=== PATIENT | female | born 1970 | race Caucasian/White ===

== ENCOUNTER 2018-04-07 21:48 | Inpatient (IN) | payer MEDICAID, SELFPAY ==
[2018-04-07] VITALS (29 sets, daily range): BP systolic 99–179; BP diastolic 47–98; PULSE 100–115; RESP 15–36; TEMP 37.1; O2SAT 81–100
[2018-04-07 22:30] LABS: Abs Immature Grans 0.03 k/cumm (0.0-0.09); Absolute Basophil Count 0.07 k/cumm (0.0-0.2); Absolute Eosinophil Count 0.34 k/cumm (0.0-0.7); Absolute Lymphocyte Count 3.36 k/cumm (1.2-3.4); Absolute Monocyte Count 0.91 k/cumm (0.11-0.7); Absolute Neutrophil Count 6.27 k/cumm (1.2-6.7); Basophils % 0.6; Eosinophils % 3.1; HCT 37.9 % (36.0-46.0); HGB 11.8 g/dL (12.0-15.5); Immature Grans % 0.3; Lymphocytes % 30.6; Mean Corp. HGB Concentration 31.1 g/dL (32.0-36.0); Mean Corpuscular Hemoglobin 23.9 pg (27.0-33.0); Mean Corpuscular Volume 76.9 fL (80-95); Mean Platelet Volume 9.9 fL (8.0-11.0); Monocytes % 8.3; Neutrophils % 57.1; Platelet Count 374 x1000/uL (130-400); RBC 4.93 m/cumm (4.00-5.20); RBC Distribution Width 15.7 % (11.7-14.6); White Blood Cell Count 10.98 k/cumm (4.4-10.8)
--- NOTE | 2018-04-07 22:31 | W.ED.GENAD ---
Discharge Plan Discharge Details Chief Complaint: Chest Pain Primary Care Provider: Niru Garces ED Provider: Reed Aparicio Home Meds and New Rx's Prescriptions: No Action No Known Home Meds RF: 0 Medical Decision Making 10:30 -- 47-year-old female here with left anterior chest and shoulder pain radiating to her left neck and left arm. Tachycardic. Normotensive. Saturating well no respiratory distress. ECG reviewed and interpreted by me: Sinus tachycardia 108 bpm, normal axis, ST depressions are noted lead I, V3 to V6, no STEMI, nondiagnostic. I compared EKG to prior EKG from 01/20/2010 where she did have some subtle ST depression which seems less pronounced laterally. Despite lacking significant risk factors for coronary artery disease, I am concerned given the patient's presentation and ECG findings that she may have acute coronary syndrome. Plan at this time is to check troponin. Patient is tachycardic, I suspect secondary to anxiety as she is quite anxious. She has no other signs of acute pulmonary embolism including no associated shortness of breath or calf tenderness and no risk factors for DVT/PE. Will check ddimer and give ativan. -- Patient reassessed after nitro SL x2 and pain significantly improved. 12:00 -- Initial trop neg. Ddimer < 500 but patient remains tachycardic despite anxiolytic. Also with low normal saturations. Plan to CT chest to assess for PE/dissection. 1:50 --CT of the chest interpreted by radiology: Limited examination for the exclusion of pulmonary emboli as a result of quantum mottle, no central embolism is identified. There is low density within a left subsegmental branch which could be artifactual or represent a small pulmonary embolism. Aorta and main pulmonary artery are similar in caliber which can be seen with pulmonary arterial hypertension. Large complex lesion in the left lobe of the thyroid. Ultrasound recommended for further evaluation. Nodular density in the left breast this may represent a cystic structure. Diagnostic mammogram and ultrasound would be beneficial for better evaluation. Hepatic steatosis. No pneumothorax. No pleural effusion. No cardiomegaly. No pericardial effusion. Spoke with radiologist about the study and specifically regarding the complex lesion of the left thyroid. She does note there could be bleeding within this mass. Ultrasound is not available tonight. I will proceed to dedicated CT imaging of the neck to better assess this lesion prior to initiating lovenox. Pt does not have tenderness in this area. I spoke with patient about results - she understands importance of follow-up on incidental findings. HPI General Mode of arrival: ambulatory. Date/Time Provider Initiated Documentation: 04/07/18 22:12. Limitations to Documentation: no limitations. Information obtained by: patient. HPI Narrative: 47-year-old female presents with chief complaint of left shoulder pain. Patient notes that she was on the phone, speaking with her son around 7:30 PM tonight and developed pain in her left shoulder that initially felt like a sprained muscle. Pain then started to radiate into her left neck, left upper extremity and down to her elbow. Pain has persisted. Pain is constant and moderate in intensity. Pain is rated 5/10. No modifiers. Deep inspiration does not worsen the pain. She has no associated shortness of breath. She does note chronic leg swelling that is unchanged with no focal swelling or pain in her calves. She has had some associated nausea but did not vomit. Related Data Home Medications Medication Instructions Recorded Confirmed Unknown [No Known Home Meds] 04/07/18 04/07/18 Allergies Allergy/AdvReac Type Severity Reaction Status Date / Time No Known Allergies Allergy Unverified 04/07/18 21:55 General Stated Complaint: Chest Pain CARSON: 2 Review of Systems Review of Systems All systems reviewed & are unremarkable except as noted in HPI and below Cardiovascular Reports chest pain (Upper anterior chest) and Denies dyspnea Respiratory Denies cough and Denies dyspnea Psychiatric Reports anxiety [facility] Social History Smoking/Tobacco Use Status: Never Exam Const General: cooperative and anxious [facility] Head: normocephalic and atraumatic Mouth: moist mucous membranes Eyes Conjunctivae: normal conjunctivae Sclera: normal sclerae EOM: EOM intact bilaterally Neck Neck: trachea midline, supple and nontender Thyroid: lateral enlargement on the left and nontender Resp Auscultation: clear to auscultation bilaterally, no rales, no rhonchi and no wheezes Cardio Jugular venous pressure: no JVD Rate: regular rate and tachycardic Rhythm: regular rhythm Heart Sounds: murmur (2/6 left chest) GI Palpation: soft, not firm, no guarding, no masses, not rigid and nontender Skin General skin exam: no rashes or lesions noted Neuro General: alert, awake, oriented x3 and tone normal Cognition: normal cognition Speech: speech normal Extrem General: no calf tenderness bilaterally and edema Laterality: bilateral (trace nonpitting) Psych Appearance: grossly normal Mental Status: mental status grossly normal Speech and Movement: speech and movement normal Mood: anxious mood Affect: anxious affect Course Vital Signs Temperature 37.1 C 04/07/18 21:55 Pulse 112 H 04/07/18 21:55 Respiratory Rate 18 04/07/18 21:55 Blood Pressure 179/98 H 04/07/18 21:55 Pulse Oximetry 100 04/07/18 21:55 Temperature 37.1 C 04/07/18 21:55 Temperature Source Temporal Artery Scan 04/07/18 21:55 Pulse 112 H 04/07/18 21:55 Respiratory Rate 19 04/07/18 21:58 Respiratory Effort 04/07/18 21:58 Respiratory Depth Normal 04/07/18 21:58 Respiratory Pattern Normal 04/07/18 21:58 Blood Pressure 179/98 H 04/07/18 21:55 Blood Pressure Position Sitting 04/07/18 21:55 Pulse Oximetry 100 04/07/18 21:55 Oxygen Delivery Method Room Air 04/07/18 21:55 Oxygen Flow Rate 0 04/07/18 21:55 Pain Level 5 04/07/18 21:55
--- NOTE | 2018-04-07 22:35 | ED.GENADUL_ITS ---
Discharge Plan Discharge Details Chief Complaint: Chest Pain Primary Care Provider: Niru Garces ED Provider: Reed Aparicio Home Meds and New Rx's Prescriptions: No Action No Known Home Meds RF: 0 Medical Decision Making 10:30 -- 47-year-old female here with left anterior chest and shoulder pain radiating to her left neck and left arm. Tachycardic. Normotensive. Saturating well no respiratory distress. ECG reviewed and interpreted by me: Sinus tachycardia 108 bpm, normal axis, ST depressions are noted lead I, V3 to V6, no STEMI, nondiagnostic. I compared EKG to prior EKG from 01/20/2010 where she did have some subtle ST depression which seems less pronounced laterally. Despite lacking significant risk factors for coronary artery disease, I am concerned given the patient's presentation and ECG findings that she may have acute coronary syndrome. Plan at this time is to check troponin. Patient is tachycardic, I suspect secondary to anxiety as she is quite anxious. She has no other signs of acute pulmonary embolism including no associated shortness of breath or calf tenderness and no risk factors for DVT/PE. Will check ddimer and give ativan. -- Patient reassessed after nitro SL x2 and pain significantly improved. 12:00 -- Initial trop neg. Ddimer < 500 but patient remains tachycardic despite anxiolytic. Also with low normal saturations. Plan to CT chest to assess for PE/dissection. 1:50 --CT of the chest interpreted by radiology: Limited examination for the exclusion of pulmonary emboli as a result of quantum mottle, no central embolism is identified. There is low density within a left subsegmental branch which could be artifactual or represent a small pulmonary embolism. Aorta and main pulmonary artery are similar in caliber which can be seen with pulmonary arterial hypertension. Large complex lesion in the left lobe of the thyroid. Ultrasound recommended for further evaluation. Nodular density in the left breast this may represent a cystic structure. Diagnostic mammogram and ultrasound would be beneficial for better evaluation. Hepatic steatosis. No pneumothorax. No pleural effusion. No cardiomegaly. No pericardial effusion. Spoke with radiologist about the study and specifically regarding the complex lesion of the left thyroid. She does note there could be bleeding within this mass. Ultrasound is not available tonight. I will proceed to dedicated CT imaging of the neck to better assess this lesion prior to initiating lovenox. Pt does not have tenderness in this area. I spoke with patient about results - she understands importance of follow-up on incidental findings. HPI General Mode of arrival: ambulatory . Date/Time Provider Initiated Documentation: 04/07/18 22:12 . Limitations to Documentation: no limitations . Information obtained by: patient . HPI Narrative: 47-year-old female presents with chief complaint of left shoulder pain. Patient notes that she was on the phone, speaking with her son around 7:30 PM tonight and developed pain in her left shoulder that initially felt like a sprained muscle. Pain then started to radiate into her left neck, left upper extremity and down to her elbow. Pain has persisted. Pain is constant and moderate in intensity. Pain is rated 5/10. No modifiers. Deep inspiration does not worsen the pain. She has no associated shortness of breath. She does note chronic leg swelling that is unchanged with no focal swelling or pain in her calves. She has had some associated nausea but did not vomit. Related Data Home Medications Medication Instructions Recorded Confirmed Unknown [No Known Home Meds] 04/07/18 04/07/18 Allergies Allergy/AdvReac Type Severity Reaction Status Date / Time No Known Allergies Allergy Unverified 04/07/18 21:55 General Stated Complaint: Chest Pain CARSON: 2 Review of Systems Review of Systems All systems reviewed & are unremarkable except as noted in HPI and below Cardiovascular Reports chest pain (Upper anterior chest) and Denies dyspnea Respiratory Denies cough and Denies dyspnea Psychiatric Reports anxiety [facility] Social History Smoking/Tobacco Use Status: Never Exam Const General: cooperative and anxious [facility] Head: normocephalic and atraumatic Mouth: moist mucous membranes Eyes Conjunctivae: normal conjunctivae Sclera: normal sclerae EOM: EOM intact bilaterally Neck Neck: trachea midline, supple and nontender Thyroid: lateral enlargement on the left and nontender Resp Auscultation: clear to auscultation bilaterally, no rales, no rhonchi and no wheezes Cardio Jugular venous pressure: no JVD Rate: regular rate and tachycardic Rhythm: regular rhythm Heart Sounds: murmur (2/6 left chest) GI Palpation: soft, not firm, no guarding, no masses, not rigid and nontender Skin General skin exam: no rashes or lesions noted Neuro General: alert, awake, oriented x3 and tone normal Cognition: normal cognition Speech: speech normal Extrem General: no calf tenderness bilaterally and edema Laterality: bilateral (trace nonpitting) Psych Appearance: grossly normal Mental Status: mental status grossly normal Speech and Movement: speech and movement normal Mood: anxious mood Affect: anxious affect Course Vital Signs Temperature 37.1 C 04/07/18 21:55 Pulse 112 H 04/07/18 21:55 Respiratory Rate 18 04/07/18 21:55 Blood Pressure 179/98 H 04/07/18 21:55 Pulse Oximetry 100 04/07/18 21:55 Temperature 37.1 C 04/07/18 21:55 Temperature Source Temporal Artery Scan 04/07/18 21:55 Pulse 112 H 04/07/18 21:55 Respiratory Rate 19 04/07/18 21:58 Respiratory Effort 04/07/18 21:58 Respiratory Depth Normal 04/07/18 21:58 Respiratory Pattern Normal 04/07/18 21:58 Blood Pressure 179/98 H 04/07/18 21:55 Blood Pressure Position Sitting 04/07/18 21:55 Pulse Oximetry 100 04/07/18 21:55 Oxygen Delivery Method Room Air 04/07/18 21:55 Oxygen Flow Rate 0 04/07/18 21:55 Pain Level 5 04/07/18 21:55
--- NOTE | 2018-04-07 22:35 | DI.RAD_ITS ---
SYMPTOMS/DIAGNOSIS: CHEST PAIN CHEST X-RAY, AP PORTABLE: No priors. The heart size and pulmonary vasculature are within normal limits. No focal consolidating infiltrates are seen. No effusions or pneumothoraces are identified. IMPRESSION: No acute pulmonary process.
[2018-04-07] MEDS: LORazepam 2 MG/ML VIAL 0.5 MG IVP (22:37)
[2018-04-07 22:51] LABS: ALT 41 U/L (12-78); AST 29 U/L (15-37); Albumin 3.8 g/dL (3.4-5.0); Alkaline Phosphatase 103 U/L (46-116); Anion Gap 8.8 mmol/L (3-11); BUN 14 mg/dL (7-18); Bilirubin, Total 0.3 mg/dL (0.2-1.0); CO2 29.2 mmol/L (21.0-32.0); CREATININE 0.61 mg/dL (0.55-1.02); Calcium 9.4 mg/dL (8.5-10.1); Chloride 103 mmol/L (98-107); Glucose 117 mg/dL (70-100); Magnesium 2.1 mg/dL (1.8-2.4); Sodium 141 mmol/L (136-145); Total Protein 7.5 g/dL (6.4-8.2)
[2018-04-07 22:53] LABS: Troponin I < 0.02 ng/mL (0.00-0.06)
[2018-04-07 23:04] LABS: D-Dimer 451 ng/mlFEU (<500)
--- NOTE | 2018-04-07 23:15 | DI.VRAD_ITS ---
EXAM: XR Chest, 1 View EXAM DATE/TIME: 04/07/2018 10:35 PM CLINICAL HISTORY: 47 years old, female; Pain; Chest pain TECHNIQUE: XR of the chest, 1 view. COMPARISON: No relevant prior studies available. FINDINGS: Lungs: Minimal strandiness in the left lung base suggests mild atelectasis/scarring. Pleural space: Unremarkable. No pleural effusion. No pneumothorax. Heart/Mediastinum: Unremarkable. No cardiomegaly. Bones/joints: Chronic osseous changes. IMPRESSION: No acute findings. Dictated and Authenticated by: Jesse Beaver MD. Ordering:EARL OQUENDO MD
[2018-04-08] VITALS (69 sets, daily range): BP systolic 101–156; BP diastolic 45–127; PULSE 71–129; RESP 13–32; TEMP 36.2–36.9; O2SAT 86–100
--- NOTE | 2018-04-08 00:30 | DI.CT_ITS ---
SYMPTOMS/DIAGNOSIS: LEFT CHEST PAIN, TACHYCARDIA; LEFT NECK MASS, NECK PAIN CT SCAN OF THE CHEST: CT angiography was performed with multi slice acquisition and multi planar and 3D reconstruction. CT scan of the chest was performed according to the pulmonary embolus protocol. Comparison mammogram is 03/02/2012. The peripheral pulmonary arteries are not well opacified. No central pulmonary artery embolus is seen. The thoracic aorta is of normal caliber. No aneurysm or dissection is present. The heart size is within normal limits. No significant pericardial effusion is seen. No significant mediastinal or hilar adenopathy is present. No pleural effusion or pneumothorax is identified. No focal infiltrates are seen. The tracheobronchial tree is unremarkable. Upper abdominal images show no acute abnormality. There does appear to be decreased attenuation of the liver, suggesting hepatic steatosis. There is a well-circumscribed hypodense lesion in the retroareolar region of the left breast. There is a lesion seen on mammogram from 2012, which likely corresponds to this. The lesion currently measures 1.9 cm. Mammogram followup is recommended. Degenerative changes are seen in the spine. There is a complex cystic and solid lesion in the left thyroid gland. There is a peripherally calcified hypodense lesion in the inferior and posterior aspect of the left lobe of the thyroid gland. The left thyroid is enlarged and extends into the retrosternal region. The lesion is incompletely imaged, but measures 7.1 x 5.7 cm maximally. It does cause rightward deviation of the trachea. IMPRESSION: 1. Suboptimal opacification of the pulmonary arteries, but no central pulmonary artery embolus is seen. 2. No evidence of thoracic aortic dissection or aneurysm. 3. Complex left thyroid lesion. Ultrasound is recommended for further evaluation. 4. Nodular density in the left breast. Mammography should be considered for further evaluation. CT SCAN OF THE NECK: CT scan of the neck was performed following the uneventful administration of intravenous contrast material. The thyroid gland is heterogeneous with bilateral masses. The left lobe is enlarged with a heterogeneous mass measuring 6.6 x 5.4 x 7.7 cm. It causes rightward deviation of the trachea. There is a peripherally calcified nodule in the lower pole of the left lobe of the thyroid gland. There is a hypodense 1.3 cm nodule in the right lobe of the thyroid gland. There is a calcification in the upper pole of the right lobe of the thyroid gland. The nasopharynx, oropharynx, hypopharynx, larynx and trachea are otherwise unremarkable. The retropharyngeal space has a normal appearance. The parotid and submandibular glands are unremarkable. No significant cervical adenopathy is present. The vascular structures are grossly unremarkable. The bones are intact. The lung apices are clear. IMPRESSION: Enlarged heterogeneous thyroid with multiple thyroid nodules, the largest is a 7.7 cm heterogeneous left thyroid mass. Further evaluation is recommended. This may include ultrasound and biopsy if clinically appropriate.
[2018-04-08] MEDS: Lactated Ringers 500 ML IV (00:40)
[2018-04-08] MEDS: Omnipaque 350 MG/ML 100 ML BTL IJ ×2 (01:04→02:55)
[2018-04-08 01:17] LABS: TSH (W/Ref FT4) 2.03 uIU/mL (0.358-3.74)
--- NOTE | 2018-04-08 01:39 | DI.VRAD_ITS ---
EXAM: CT Angiography Chest With Intravenous Contrast EXAM DATE/TIME: 04/08/2018 12:05 AM CLINICAL HISTORY: 47 years old, female; Pain and signs and symptoms; Other: Tachycardia; Chest pain; Type not specified; Patient HX: Chest pain and discomfort worsening throughout the day and into arm TECHNIQUE: Axial computed tomographic angiography images of the chest with intravenous contrast using CT angiography protocol. All CT scans at this facility use at least one of these dose optimization techniques: automated exposure control; mA and/or kV adjustment per patient size (includes targeted exams where dose is matched to clinical indication); or iterative reconstruction. Coronal and sagittal reformatted images were created and reviewed. MIP reconstructed images were created and reviewed. CONTRAST: 100 ml of Omnipaque 350 administered intravenously. COMPARISON: SC XR PORTABLE CHEST AP 04/07/2018 10:55 PM FINDINGS: Limitations: The contrast in the main pulmonary artery only measures 213 Hounsfield units. Ideally, to exclude pulmonary embolism, contrast in the main pulmonary arteries should measure at least 250 Hounsfield units. In addition, there is a considerable amount of quantum mottle. Motion is also seen. Pulmonary arteries: No central pulmonary embolism is identified. There is low density within it a left subsegmental branch on series 8 image 232 which could be artifactual or represent a small pulmonary embolism. Aorta: Evaluation of the proximal ascending thoracic aorta is limited secondary to motion. No aneurysm identified. The aorta and main pulmonary artery are similar in caliber which can be seen with pulmonary arterial hypertension. Lungs: There are scattered areas of atelectasis or scarring. Pleural space: Normal. No pneumothorax. No pleural effusion. Heart: Normal. No cardiomegaly. No pericardial effusion. Mediastinum: Gas in the esophagus which can be seen with reflux. Thyroid: The thyroid appears heterogeneous with a complex lesion identified in the left lobe measuring approximately 6 cm. Ultrasound recommended for further evaluation. Bones/joints: Skeletal degenerative changes. Scoliosis. Soft tissues: Series 6 image 33 demonstrates a 1.6 cm nodular density in the left breast measuring less than 10 Hounsfield units. This may represent a cystic structure. Diagnostic mammogram and ultrasound would be beneficial for better evaluation. Lymph nodes: Unremarkable. No enlarged lymph nodes. Liver: Limited evaluation of the abdomen demonstrates hepatic steatosis. Upper abdomen: Mild elevation of the right hemidiaphragm. IMPRESSION: 1. Limited examination for the exclusion of pulmonary emboli for reasons as above. No central pulmonary embolism is identified. There is low density within it a left subsegmental branch on series 8 image 232 which could be artifactual or represent a small pulmonary embolism. 2. Aorta and main pulmonary artery are similar in caliber which can be seen with pulmonary arterial hypertension. 3. Large complex lesion in the left lobe of the thyroid. Ultrasound recommended for further evaluation. 4. Nodular density in the left breast. This may represent a cystic structure. Diagnostic mammogram and ultrasound would be beneficial for better evaluation. 5. Hepatic steatosis. Other findings as above. Dictated and Authenticated by: Heidi Larsen MD. Ordering:EARL OQUENDO MD
[2018-04-08 01:47] LABS: FREE T4 1.02 ng/dL (0.76-1.46)
[2018-04-08 02:19] LABS: Troponin I < 0.02 ng/mL (0.00-0.06)
--- NOTE | 2018-04-08 03:26 | DI.VRAD_ITS ---
EXAM: CT Neck With Intravenous Contrast EXAM DATE/TIME: 04/08/2018 1:50 AM CLINICAL HISTORY: 47 years old, female; Abnormal findings; Abnormal radiologic study of neck; Patient HX: Lesion seen on CT pe study, TECHNIQUE: Axial computed tomography images of the neck with intravenous contrast. All CT scans at this facility use at least one of these dose optimization techniques: automated exposure control; mA and/or kV adjustment per patient size (includes targeted exams where dose is matched to clinical indication); or iterative reconstruction. Coronal and sagittal reformatted images were created and reviewed. CONTRAST: 100 ml of Omnipaque 350 administered intravenously. COMPARISON: No relevant prior studies available. FINDINGS: Nasopharynx: Normal. Oropharynx: Normal. No significant tonsillar enlargement. No peritonsillar abscess. Hypopharynx: Normal. Larynx: Normal. Normal epiglottis. Trachea: Normal. Retropharyngeal space: Normal. Submandibular/Parotid glands: Normal. Glands are normal in size. Thyroid: Enlarged left thyroid lobe, 6.6 x 5.4 x 7.7 cm, responsible for mild tracheal deviation to the right. Left thyroid lobe is heterogeneous, essentially composed of hypodense heterogeneous nodule, consider biopsy. Peripherally calcified nodule within lower pole measures 1.9 x 1.7 cm. Bones/joints: Normal. No acute fracture. Soft tissues: Normal. No significant soft tissue swelling. Vasculature: No acute findings. Lymph nodes: Normal. No lymphadenopathy. Lung apices: See Thyroid Finding. IMPRESSION: Enlarged left thyroid lobe, nearly entirely composed of a heterogeneous nodule, consider evaluation with elective ultrasound and if clinically appropriate, biopsy. Dictated and Authenticated by: Yusuf Miranda MD. Ordering:EARL OQUENDO MD
[2018-04-08] MEDS: Pantoprazole 40 MG TABCR PO (08:34)
--- NOTE | 2018-04-08 17:17 | HPE_ITS ---
Assessment and Plan (1) Pulmonary embolism: Current visit: Yes Status: Acute Diagnosis of PE in patient with a normal DDimer, and CT findings that are equivocal at best with technique limitations but could represent either artifact or a 'small' pulmonary embolism. Patient is completely hemodynamicaly stable. Of note however, Mrs. Montgomery does report a prior history of DVT in the early in the setting of decreased mobility (work related), and although she has abnormal imaging findings in the thyroid and left breast that are likely non-malignant, cannot entirely rule out Cancer at this time. Continue SC Lovenox. Novel Oral Anticoagulants are contraindicated due to patient's weight and BMI - will initiate concurrent Coumadin. Will likely require SC Lovenox at time of discharge until INR is therapeutic. Given that patient's symptoms were of Chest discomfort will completely rule out with serial cardiac biomarkers as well, and maintain on telemetry. Consider stress testing in the near future as well. (2) Thyroid nodule: Current visit: Yes Status: Acute Subsequent imaging by CT Neck shows a heterogenous nodule encompassing nearly the entire left lobe of the thyroid. TSH normal. Will recommend outpatient follow-up with an elective u/s and biopsy in the near future. (3) Breast cyst: Current visit: Yes Status: Acute Again recommend outpatient u/s and biopsy as above, along with a diagnostic mammogram. (4) Obesity: Current visit: Yes Status: Chronic (5) DVT prophylaxis: Current visit: Yes Status: Acute On therapeutic lovenox. History of Present Illness Chief Complaint: Chest Pain Narrative: 47-year-old pleasant woman without known significant prior medical history other than potential DVT diagnosed in the early , presents to [facility] Emergency Department with complaint of Chest Pain. Mrs. Montgomery reports onset of left anterior chest and shoulder pain last evening , with radiation to her left neck and upper extremity. She was noted to be tachycardic, but Normotensive and without an oxygen requirement. Her ECG was reported as nondiagnostic but without acute ischemic changes, unfortunately unavailable for review at time of admission. Despite improvement in pain in the ER with SL NTG, the patient had a negative Troponin X2. Despite a negative DDimer the patient underwent CT Imaging of the chest, which was limited by technique and showed a 'potential' left subsegmental artifact vs. small PE. Note was also made of a cystic nodule in the left breast, as well as an enlarged left lobe of the thyroid, composed nearly entirely of a heterogeneous nodule by CT Neck. TSH was checked and normal. The patient was referred for admission to the hospitalist service. Review of Systems Review of Systems All systems reviewed & are unremarkable except as noted in HPI and below and Unobtainable due to (Specifically denies dyspnea, any change in LE swelling, Calf Pain. No recent surgery or gross immobility. No recent travel.) [facility] Social History Smoking/Tobacco Use Status: Never Meds Home Medications Medication Instructions Recorded Confirmed Type Unknown [No Known Home Meds] 04/07/18 04/07/18 History Allergies Allergy/AdvReac Type Severity Reaction Status Date / Time No Known Allergies Allergy Unverified 04/07/18 21:55 Exam Narrative Exam Narrative: General: Patient appears comfortable, AAOX3, NAD Neck: Supple CV: Regular, nontachycardic at time of exam, S1S2, No rubs, murmurs, or gallops. Pulmonary: Clear to auscultation bilaterally, no crackles, wheezing, or rhonchi Abdomen: + Bowel Sounds, soft, nontender, nondistended, obese in contour Vascular: No lower extremity edema Neurologic: CN II-XII grossly intact. No focal deficits. Psych: Normal mood and affect. Results Imaging CT scan - chest: report reviewed Additional studies: Exam(s) EXAM: XR Chest, 1 View EXAM DATE/TIME: 04/07/2018 10:35 PM CLINICAL HISTORY: 47 years old, female; Pain; Chest pain FINDINGS: Lungs: Minimal strandiness in the left lung base suggests mild atelectasis/scarring. Pleural space: Unremarkable. No pleural effusion. No pneumothorax. Heart/Mediastinum: Unremarkable. No cardiomegaly. Bones/joints: Chronic osseous changes. IMPRESSION: No acute findings. ----- Exam(s) EXAM: CT Angiography Chest With Intravenous Contrast EXAM DATE/TIME: 04/08/2018 12:05 AM FINDINGS: Limitations: The contrast in the main pulmonary artery only measures 213 Hounsfield units. Ideally, to exclude pulmonary embolism, contrast in the main pulmonary arteries should measure at least 250 Hounsfield units. In addition, there is a considerable amount of quantum mottle. Motion is also seen. Pulmonary arteries: No central pulmonary embolism is identified. There is low density within it a left subsegmental branch on series 8 image 232 which could be artifactual or represent a small pulmonary embolism. Aorta: Evaluation of the proximal ascending thoracic aorta is limited secondary to motion. No aneurysm identified. The aorta and main pulmonary artery are similar in caliber which can be seen with pulmonary arterial hypertension. Lungs: There are scattered areas of atelectasis or scarring. Pleural space: Normal. No pneumothorax. No pleural effusion. Heart: Normal. No cardiomegaly. No pericardial effusion. Mediastinum: Gas in the esophagus which can be seen with reflux. Thyroid: The thyroid appears heterogeneous with a complex lesion identified in the left lobe measuring approximately 6 cm. Ultrasound recommended for further evaluation. Bones/joints: Skeletal degenerative changes. Scoliosis. Soft tissues: Series 6 image 33 demonstrates a 1.6 cm nodular density in the left breast measuring less than 10 Hounsfield units. This may represent a cystic structure. Diagnostic mammogram and ultrasound would be beneficial for better evaluation. Lymph nodes: Unremarkable. No enlarged lymph nodes. Liver: Limited evaluation of the abdomen demonstrates hepatic steatosis. Upper abdomen: Mild elevation of the right hemidiaphragm. IMPRESSION: 1. Limited examination for the exclusion of pulmonary emboli for reasons as above. No central pulmonary embolism is identified. There is low density within it a left subsegmental branch on series 8 image 232 which could be artifactual or represent a small pulmonary embolism. 2. Aorta and main pulmonary artery are similar in caliber which can be seen with pulmonary arterial hypertension. 3. Large complex lesion in the left lobe of the thyroid. Ultrasound recommended for further evaluation. 4. Nodular density in the left breast. This may represent a cystic structure. Diagnostic mammogram and ultrasound would be beneficial for better evaluation. 5. Hepatic steatosis. Other findings as above. ----- Exam(s) EXAM: CT Neck With Intravenous Contrast EXAM DATE/TIME: 04/08/2018 1:50 AM FINDINGS: Nasopharynx: Normal. Oropharynx: Normal. No significant tonsillar enlargement. No peritonsillar abscess. Hypopharynx: Normal. Larynx: Normal. Normal epiglottis. Trachea: Normal. Retropharyngeal space: Normal. Submandibular/Parotid glands: Normal. Glands are normal in size. Thyroid: Enlarged left thyroid lobe, 6.6 x 5.4 x 7.7 cm, responsible for mild tracheal deviation to the right. Left thyroid lobe is heterogeneous, essentially composed of hypodense heterogeneous nodule, consider biopsy. Peripherally calcified nodule within lower pole measures 1.9 x 1.7 cm. Bones/joints: Normal. No acute fracture. Soft tissues: Normal. No significant soft tissue swelling. Vasculature: No acute findings. Lymph nodes: Normal. No lymphadenopathy. Lung apices: See Thyroid Finding. IMPRESSION: Enlarged left thyroid lobe, nearly entirely composed of a heterogeneous nodule, consider evaluation with elective ultrasound and if clinically appropriate, biopsy. Labs : 04/07/18 22:00 04/07/18 22:00 Laboratory Results - last 24 hr 04/07/18 04/07/18 04/07/18 22:00 22:00 22:00 WBC 10.98 H RBC 4.93 Hgb 11.8 L Hct 37.9 MCV 76.9 L MCH 23.9 L MCHC 31.1 L RDW 15.7 H Plt Count 374 MPV 9.9 Immature Gran % 0.3 Neutrophils % 57.1 Lymphocytes % 30.6 Monocytes % 8.3 Eosinophils % 3.1 Basophils % 0.6 Absolute Neutrophils 6.27 Absolute Lymphocytes 3.36 Absolute Monocytes 0.91 H Absolute Eosinophils 0.34 Absolute Basophils 0.07 D-Dimer 451 Sodium 141 Potassium 4.0 Chloride 103 Carbon Dioxide 29.2 Anion Gap 8.8 BUN 14 Creatinine 0.61 Estimated GFR/1.73 m2 >= 60.00 Glucose 117 H Calcium 9.4 Magnesium 2.1 Total Bilirubin 0.3 AST 29 ALT 41 Alkaline Phosphatase 103 Troponin I < 0.02 Total Protein 7.5 Albumin 3.8 TSH Free T4 04/07/18 04/07/18 04/08/18 22:00 22:00 01:58 WBC RBC Hgb Hct MCV MCH MCHC RDW Plt Count MPV Immature Gran % Neutrophils % Lymphocytes % Monocytes % Eosinophils % Basophils % Absolute Neutrophils Absolute Lymphocytes Absolute Monocytes Absolute Eosinophils Absolute Basophils D-Dimer Sodium Potassium Chloride Carbon Dioxide Anion Gap BUN Creatinine Estimated GFR/1.73 m2 Glucose Calcium Magnesium Total Bilirubin AST ALT Alkaline Phosphatase Troponin I < 0.02 Total Protein Albumin TSH 2.03 Free T4 1.02 Last Vital Signs Temp 36.4 C L 04/08/18 16:11 Pulse 91 H 04/08/18 16:11 Resp 18 04/08/18 16:11 BP 145/91 H 04/08/18 16:11 Pulse Ox 98 04/08/18 14:35
[2018-04-08 18:34] LABS: Troponin I < 0.02 ng/mL (0.00-0.06)
[2018-04-08] MEDS: Warfarin 5 MG TAB PO (19:58)
[2018-04-09] VITALS (7 sets, daily range): BP systolic 136–167; BP diastolic 79–98; PULSE 71–79; RESP 16–17; TEMP 36.1–36.5; O2SAT 91–98
[2018-04-09] MEDS: SODIUM CHLORIDE 0.45% 1,000 ML 100 ML IV (02:12)
[2018-04-09] MEDS: Pantoprazole 40 MG TABCR PO (06:31)
[2018-04-09 06:34] LABS: Abs Immature Grans 0.02 k/cumm (0.0-0.09); Absolute Basophil Count 0.05 k/cumm (0.0-0.2); Absolute Eosinophil Count 0.23 k/cumm (0.0-0.7); Absolute Lymphocyte Count 2.23 k/cumm (1.2-3.4); Absolute Monocyte Count 0.56 k/cumm (0.11-0.7); Absolute Neutrophil Count 3.91 k/cumm (1.2-6.7); Basophils % 0.7; Eosinophils % 3.3; HCT 35.7 % (36.0-46.0); HGB 10.9 g/dL (12.0-15.5); Immature Grans % 0.3; Lymphocytes % 31.9; Mean Corp. HGB Concentration 30.5 g/dL (32.0-36.0); Mean Corpuscular Volume 78.5 fL (80-95); Mean Platelet Volume 9.8 fL (8.0-11.0); Neutrophils % 55.8; Platelet Count 312 x1000/uL (130-400); RBC 4.55 m/cumm (4.00-5.20); RBC Distribution Width 15.9 % (11.7-14.6)
[2018-04-09 06:47] LABS: INR 1.1 (1.0-3.5); Prothrombin Time 10.6 sec (9.3-10.8)
[2018-04-09 06:56] LABS: BUN 10 mg/dL (7-18); CREATININE 0.61 mg/dL (0.55-1.02); Calcium 8.9 mg/dL (8.5-10.1); Chloride 103 mmol/L (98-107); Glucose 116 mg/dL (70-100); Potassium 3.7 mmol/L (3.5-5.1); Sodium 140 mmol/L (136-145)
[2018-04-09 06:57] LABS: Troponin I < 0.02 ng/mL (0.00-0.06)
[2018-04-09] MEDS: Acetaminophen 325 MG TAB PO (07:49)
[2018-04-09] MEDS: Magnesium Oxide 400 MG TAB PO (11:05)
[2018-04-09] MEDS: POTASSIUM CHLORIDE 20 MEQ, POTASSIUM CHLORIDE 10 MEQ 30 MEQ PO (11:05)
--- NOTE | 2018-04-09 11:47 | PDOC.CMIN ---
- If Service Date Differs Date of service: 04/09/18 Time of Service: 11:47 Care Management Initial Assess REASON FOR HOSPITALIZATION:: PE PAST MEDICAL HISTORY/PAST SURGICAL HISTORY:: Obesity PREVIOUS FUNCTIONAL STATUS/SOCIAL/FAMILY SUPPORTS:: Claribel resides with her Quintin of 18 years and two children in [place]. Claribel states that she has three children, one whom is away at college. She is unemployed at this time, and states that she is independent at baseline. Claribel is able to drive and manages ADL's CURRENT FUNCTIONAL STATUS:: Currently Claribel is sitting on the edge of her bed when this food writer visits. She is pleasant and open to discussion. ADVANCE DIRECTIVES:: None on file Has patient been provided with information about the portal?: Yes Did the patient sign up for the portal?: No CODE STATUS:: Full Code INSURANCE COVERAGE / FINANCIAL ISSUES:: Medicaid, BCBS CURRENT HOME/COMMUNITY SERVICES/EQUIPMENT:: Currently Claribel has no services or medical equipment in the community. PRIMARY CARE PHYSICIAN:: Niru Garces POTENTIAL DISCHARGE NEEDS:: F/U appt with PCP. Lovenox - CM contacted [facility], Per Pt choice, and faxed Lovenox prescription. Pharmacist states that they are unable to verify today and will do this tomorrow morning. CM notified [facility], pharmacy, and Dr. Hewitt, and [facility] will distribute two Lovenox doses to Claribel prior to DC. CM notified Bree RN, of [facility] distributing two doses. PATIENT/FAMILY EDUCATION NEEDS:: review DC instructions, any limitations, and ongoing DC planning discussion. Discuss 'Ask Me Three' ANTICIPATED BARRIERS TO DISCHARGE:: None identified at this time. TRANSPORTATION:: Via private vehicle with Quintin PLAN:: Claribel will return home with no anticipated services once medically cleared. [facility] will distribute two Lovenox doses and Pt will F/U with Lala in regards to the Lovenox prescription. Claribel will F/U with PCP and plan of care as prescribed. Quintin to transport.
--- NOTE | 2018-04-09 11:56 | INITIAL_ITS ---
- If Service Date Differs Date of service: 04/09/18 Time of Service: 11:47 Care Management Initial Assess REASON FOR HOSPITALIZATION:: PE PAST MEDICAL HISTORY/PAST SURGICAL HISTORY:: Obesity PREVIOUS FUNCTIONAL STATUS/SOCIAL/FAMILY SUPPORTS:: Claribel resides with her Quintin of 18 years and two children in [place]. Claribel states that she has three children, one whom is away at college. She is unemployed at this time , and states that she is independent at baseline. Claribel is able to drive and manages ADL's CURRENT FUNCTIONAL STATUS:: Currently Claribel is sitting on the edge of her bed when this internal communications writer visits. She is pleasant and open to discussion. ADVANCE DIRECTIVES:: None on file Has patient been provided with information about the portal?: Yes Did the patient sign up for the portal?: No CODE STATUS:: Full Code INSURANCE COVERAGE / FINANCIAL ISSUES:: Medicaid, BCBS CURRENT HOME/COMMUNITY SERVICES/EQUIPMENT:: Currently Claribel has no services or medical equipment in the community. PRIMARY CARE PHYSICIAN:: Niru Garecs POTENTIAL DISCHARGE NEEDS:: F/U appt with PCP. Lovenox - CM contacted [facility], Per Pt choice, and faxed Lovenox prescription. Pharmacist states that they are unable to verify today and will do this tomorrow morning. CM notified [facility], pharmacy, and Dr. Hewitt, and [facility] will distribute two Lovenox doses to Claribel prior to DC. CM notified Bree RN, of [facility] distributing two doses. PATIENT/FAMILY EDUCATION NEEDS:: review DC instructions, any limitations, and ongoing DC planning discussion. Discuss 'Ask Me Three' ANTICIPATED BARRIERS TO DISCHARGE:: None identified at this time. TRANSPORTATION:: Via private vehicle with Quintin PLAN:: Claribel will return home with no anticipated services once medically cleared. [facility] will distribute two Lovenox doses and Pt will F/U with Lala in regards to the Lovenox prescription. Claribel will F/U with PCP and plan of care as prescribed. Quintin to transport.
--- NOTE | 2018-04-09 11:56 | PDOC.CMDIS ---
- If Service Date Differs Date of service: 04/09/18 Time of Service: 11:56 LACE Index Scoring Tool - Questions: Length of Stay (in days): 2 Acuity (Admit via E.D.?): Yes E.D. Visits: 1 - Answers: Total Score: 6 Risk of Readmission: Low Risk Care Management Discharge Reason for Hospitalization: PE Discharge Plan: Claribel will return home with no anticipated services once medically cleared. [facility] will distribute two Lovenox doses and Pt will F/U with [facility] in regards to the Lovenox prescription. Claribel will F/U with PCP and plan of care as prescribed. Quintin to transport. Patient/Family Education Needs: Review DC instructions, any limitations, and discuss Ask Me Three
--- NOTE | 2018-04-09 12:33 | W.PM.DS.N ---
Date of service: 04/09/18 Time of Service: 12:33 DS: Diagnosis Discharge Diagnosis (1) Pulmonary embolism: Status: Acute (2) Thyroid nodule: Status: Acute (3) Breast cyst: Status: Acute Discharge Plan Disposition Patient Disposition: HOME Condition: Stable Discharge Details Reason For Visit: PE Admit Date/Time: 04/08/18 07:59 Admit Provider: Jovan Hewitt Attending Provider: Jovan Hewitt Primary Care Provider: Niru Garces Hospital Course Hospital Course: CC: Chest Pain HPI: 47-year-old pleasant woman without known significant prior medical history other than potential DVT diagnosed in the early , presents to [facility] Emergency Department with complaint of Chest Pain. Mrs. Montgomery reports onset of left anterior chest and shoulder pain last evening, with radiation to her left neck and upper extremity. She was noted to be tachycardic, but Normotensive and without an oxygen requirement. Her ECG was reported as nondiagnostic but without acute ischemic changes, unfortunately unavailable for review at time of admission. Despite improvement in pain in the ER with SL NTG, the patient had a negative Troponin X2. Despite a negative DDimer the patient underwent CT Imaging of the chest, which was limited by technique and showed a 'potential' left subsegmental artifact vs. small PE. Note was also made of a cystic nodule in the left breast, as well as an enlarged left lobe of the thyroid, composed nearly entirely of a heterogeneous nodule by CT Neck. TSH was checked and normal. The patient was referred for admission to the hospitalist service. Hospital Course: 1) Pulmonary embolism: Diagnosis of PE made in patient with a normal DDimer, and CT findings that are equivocal with technique limitations that could represent either artifact or a 'small' pulmonary embolism. Patient remained hemodynamicaly stable and without hypoxia or hypotension. Of note however, Mrs. Montgomery does report a prior history of DVT in the early in the setting of decreased mobility (work related), but never recalls being on a blood thinner. She has abnormal imaging findings in the thyroid and left breast, with malignancy not completely ruled out based on current imaging. Patient does not meet criteria for a Direct-Acting Oral Anticoagulant at this time due to weight and BMI. Initiated on Coumadin, and will continue SC Lovenox as a bridge. Outpatient INR and repeat CBC in 2 days. Would consider outpatient Hematology follow-up, especially given potential prior history of DVT, for possible hypercoagulable work-up and determination of the length of treatment course with anticoagulation. Given that patient's symptoms were of Chest discomfort she was ruled out with serial cardiac biomarkers. Will recommend outpatient stress testing in the near future as well. (2) Thyroid nodule: Subsequent imaging by CT Neck shows a heterogenous nodule encompassing nearly the entire left lobe of the thyroid. TSH normal. Will recommend outpatient follow-up with an elective u/s and biopsy in the near future, with follow-up with Endocrinology for consideration for biopsy and follow-up pending results. (3) Breast cyst: Again recommend outpatient u/s and biopsy as above, along with a diagnostic mammogram. (4) Anemia Mild drop in Hemoglobin with hydration. Given need for anticoagulation will check repeat CBC in 2 days as well. Consider addition of PPI therapy if needed in the future as well. (5) Disposition Patient is hemodynamically stable, deemed safe for discharge. Home Meds and New Rx's Prescriptions: New warfarin [Coumadin] 5 mg Tablet 5 mg PO QPM 30 Days Qty: 30 RF: 0 enoxaparin [Lovenox] 150 mg/mL Syringe 130 mg subcut DAILY 7 Days Qty: 6.09 RF: 0 No Action No Known Home Meds RF: 0 Discharge Instructions Instructions: Warfarin (By mouth), Pulmonary Embolism (DC), Pulmonary Embolism (GEN) Additional Instructions: Please see your primary care doctor within the next week. You will also need to see an Automatic Serging Machine Operator and Surgeon, for potential biopsies of your thyroid and breast cyst. You will need to have an ultrasound of your thyroid, legs (for a DVT), a diagnostic mammogram (for the breast cyst), and a stress test. Referrals: Niru Garces [Primary Care Provider] - (Please daren your PCP to schedule a follow up appointment for within 1 week. [phone]) Activity:: NO Strenuous Activity Equipment/Supplies:: No Equipment Needed Diet:: As Tolerated Discharge Orders Discharge Orders: Discharge Order (Routine); Ordered 04/09/18 Ordered By: Jovan Hewitt Other Ambulatory Orders: Nuclear Medicine Stress Test (Outpt) (ONCE) (1) Location: Determined by Patient Ordered By: Jovan Hewitt Complete Blood Count No Diff (Routine) Timeframe: 2 Days Location: Determined by Patient Ordered By: Jovan MURRAY extremity venous BI (Routine) Location: Determined by Patient Ordered By: Jovan Hewitt MG mammo diagnostic BI (Routine) Location: Determined by Patient Ordered By: Jovan Hewitt Prothrombin Time (Routine) Timeframe: 2 Days Location: Determined by Patient Ordered By: Jovan MURRAY thyroid (Routine) Location: Determined by Patient Ordered By: Jovan Hewitt Discharge Data Discharge Date/Time-TO BE ENTERED AT DEPARTURE: 04/09/18 13:20 Exam Narrative Exam Narrative: General: Patient appears comfortable, AAOX3, NAD Neck: Supple CV: Regular, nontachycardic at time of exam, S1S2, No rubs, murmurs, or gallops. Pulmonary: Clear to auscultation bilaterally, no crackles, wheezing, or rhonchi Abdomen: + Bowel Sounds, soft, nontender, nondistended, obese in contour Vascular: No lower extremity edema Psych: Normal mood and affect. DS: Data Vitals/I&O Vitals and I&O: Vital Signs Temperature 36.1 C L 04/09/18 07:56 Temperature Source Tympanic 04/09/18 07:56 Pulse 77 04/09/18 07:28 Pulse 79 04/09/18 07:28 Respiratory Rate 16 04/09/18 04:43 Respiratory Effort Non-Labored 04/09/18 07:56 Respiratory Depth Normal 04/09/18 07:56 Respiratory Pattern Normal 04/09/18 07:56 Blood Pressure 167/98 H 04/09/18 07:28 Blood Pressure Mean 111 04/09/18 07:28 Blood Pressure Position Sitting 04/08/18 14:33 Pulse Oximetry 93 L 04/09/18 04:43 Oxygen Delivery Method Room Air 04/09/18 07:56 Oxygen Flow Rate 0 04/09/18 07:56 Pain Level 5 04/09/18 07:56 Intake & Output 04/08/18 04/09/18 04/09/18 23:59 11:59 23:59 Intake Total 500 / 500 Output Total 800 / 800 Balance -300 / -300 Weight 136.8 kg Intake: IV 500 / 500 Output: Urine 800 / 800 Other: Urine Color Yellow Straw Urine Appearance Clear Urine Odor None Comment void in commode X2 Voiding Methods Bedside Commode Toilet Completed studies during hospitalization [Text1]: EXAM: XR Chest, 1 View EXAM DATE/TIME: 04/07/2018 10:35 PM CLINICAL HISTORY: 47 years old, female; Pain; Chest pain TECHNIQUE: XR of the chest, 1 view. COMPARISON: No relevant prior studies available. FINDINGS: Lungs: Minimal strandiness in the left lung base suggests mild atelectasis/scarring. Pleural space: Unremarkable. No pleural effusion. No pneumothorax. Heart/Mediastinum: Unremarkable. No cardiomegaly. Bones/joints: Chronic osseous changes. IMPRESSION: No acute findings. Exam(s) EXAM: CT Angiography Chest With Intravenous Contrast EXAM DATE/TIME: 04/08/2018 12:05 AM CLINICAL HISTORY: 47 years old, female; Pain and signs and symptoms; Other: Tachycardia; Chest pain; Type not specified; Patient HX: Chest pain and discomfort worsening throughout the day and into arm FINDINGS: Limitations: The contrast in the main pulmonary artery only measures 213 Hounsfield units. Ideally, to exclude pulmonary embolism, contrast in the main pulmonary arteries should measure at least 250 Hounsfield units. In addition, there is a considerable amount of quantum mottle. Motion is also seen. Pulmonary arteries: No central pulmonary embolism is identified. There is low density within it a left subsegmental branch on series 8 image 232 which could be artifactual or represent a small pulmonary embolism. Aorta: Evaluation of the proximal ascending thoracic aorta is limited secondary to motion. No aneurysm identified. The aorta and main pulmonary artery are similar in caliber which can be seen with pulmonary arterial hypertension. Lungs: There are scattered areas of atelectasis or scarring. Pleural space: Normal. No pneumothorax. No pleural effusion. Heart: Normal. No cardiomegaly. No pericardial effusion. Mediastinum: Gas in the esophagus which can be seen with reflux. Thyroid: The thyroid appears heterogeneous with a complex lesion identified in the left lobe measuring approximately 6 cm. Ultrasound recommended for further evaluation. Bones/joints: Skeletal degenerative changes. Scoliosis. Soft tissues: Series 6 image 33 demonstrates a 1.6 cm nodular density in the left breast measuring less than 10 Hounsfield units. This may represent a cystic structure. Diagnostic mammogram and ultrasound would be beneficial for better evaluation. Lymph nodes: Unremarkable. No enlarged lymph nodes. Liver: Limited evaluation of the abdomen demonstrates hepatic steatosis. Upper abdomen: Mild elevation of the right hemidiaphragm. IMPRESSION: 1. Limited examination for the exclusion of pulmonary emboli for reasons as above. No central pulmonary embolism is identified. There is low density within it a left subsegmental branch on series 8 image 232 which could be artifactual or represent a small pulmonary embolism. 2. Aorta and main pulmonary artery are similar in caliber which can be seen with pulmonary arterial hypertension. 3. Large complex lesion in the left lobe of the thyroid. Ultrasound recommended for further evaluation. 4. Nodular density in the left breast. This may represent a cystic structure. Diagnostic mammogram and ultrasound would be beneficial for better evaluation. 5. Hepatic steatosis. Other findings as above. EXAM: CT Neck With Intravenous Contrast EXAM DATE/TIME: 04/08/2018 1:50 AM CLINICAL HISTORY: 47 years old, female; Abnormal findings; Abnormal radiologic study of neck; Patient HX: Lesion seen on CT pe study, COMPARISON: No relevant prior studies available. FINDINGS: Nasopharynx: Normal. Oropharynx: Normal. No significant tonsillar enlargement. No peritonsillar abscess. Hypopharynx: Normal. Larynx: Normal. Normal epiglottis. Trachea: Normal. Retropharyngeal space: Normal. Submandibular/Parotid glands: Normal. Glands are normal in size. Thyroid: Enlarged left thyroid lobe, 6.6 x 5.4 x 7.7 cm, responsible for mild tracheal deviation to the right. Left thyroid lobe is heterogeneous, essentially composed of hypodense heterogeneous nodule, consider biopsy. Peripherally calcified nodule within lower pole measures 1.9 x 1.7 cm. Bones/joints: Normal. No acute fracture. Soft tissues: Normal. No significant soft tissue swelling. Vasculature: No acute findings. Lymph nodes: Normal. No lymphadenopathy. Lung apices: See Thyroid Finding. IMPRESSION: Enlarged left thyroid lobe, nearly entirely composed of a heterogeneous nodule, consider evaluation with elective ultrasound and if clinically appropriate, biopsy. Labs on day of discharge: Labs from last 24 hours 04/09/18 04/09/18 04/09/18 05:34 05:34 05:34 WBC 7.00 RBC 4.55 Hgb 10.9 L Hct 35.7 L MCV 78.5 L MCH 24.0 L MCHC 30.5 L RDW 15.9 H Plt Count 312 MPV 9.8 Immature Gran % 0.3 Neutrophils % 55.8 Lymphocytes % 31.9 Monocytes % 8.0 Eosinophils % 3.3 Basophils % 0.7 Absolute Neutrophils 3.91 Absolute Lymphocytes 2.23 Absolute Monocytes 0.56 Absolute Eosinophils 0.23 Absolute Basophils 0.05 PT 10.6 INR 1.1 Sodium 140 Potassium 3.7 Chloride 103 Carbon Dioxide 28.0 Anion Gap 9.0 BUN 10 Creatinine 0.61 Estimated GFR/1.73 m2 >= 60.00 Glucose 116 H Calcium 8.9 Troponin I < 0.02 04/08/18 18:10 WBC RBC Hgb Hct MCV MCH MCHC RDW Plt Count MPV Immature Gran % Neutrophils % Lymphocytes % Monocytes % Eosinophils % Basophils % Absolute Neutrophils Absolute Lymphocytes Absolute Monocytes Absolute Eosinophils Absolute Basophils PT INR Sodium Potassium Chloride Carbon Dioxide Anion Gap BUN Creatinine Estimated GFR/1.73 m2 Glucose Calcium Troponin I < 0.02
== END 2018-04-09 14:15 | disposition home or self-care (01) | DRG 176 ==
LOC: ER 23:12 → ICU 04-09 06:14
PROVIDERS: Admitting Provider Internal Medicine; Emergency Provider Student in an Organized Health Care Education/Training Program; PCP Physician Assistant; Visit Provider Internal Medicine
DX: I26.99 Other pulmonary embolism without acute cor pulmonale (principal); Z68.42 Body mass index [BMI] 45.0-49.9, adult; E04.1 Nontoxic single thyroid nodule; E66.9 Obesity, unspecified; D64.9 Anemia, unspecified
CPT/HCPCS: 36415; 70491; 71275; 80048; 80053; 93005; 96361; 96372; 96374; 99223; 99239; 99285; 71045; 83735; 84439; 84443; 84484; 85025; 85379; 85610; 93010; J1650; J2060; J3490

== ENCOUNTER 2018-04-10 01:18 | Outpatient (CLI) | payer MEDICAID, SELFPAY ==
--- NOTE | 2018-04-10 15:18 | DI.US_ITS ---
SYMPTOMS/DIAGNOSIS: PE, I26.99, ? DVT, CHRONIC LEG SWELLING, H/O DVT IN 1990S BILATERAL LOWER EXTREMITY ULTRASOUND: The deep veins show normal augmentation, compression and color flow in both lower extremities. There is no evidence of a deep venous thrombus in either lower extremity. The visualized portions of the greater saphenous veins are patent with normal compression and blood flow demonstrated. IMPRESSION: No evidence of a deep venous thrombus in either lower extremity.
== END 2018-04-10 01:38 ==
PROVIDERS: PCP Physician Assistant; Visit Provider Internal Medicine
DX: I26.99 Other pulmonary embolism without acute cor pulmonale (principal); R22.43 Localized swelling, mass and lump, lower limb, bilateral; Z86.718 Personal history of other venous thrombosis and embolism
CPT/HCPCS: 93970

== ENCOUNTER 2018-04-11 14:22 | Outpatient (CLI) | payer MEDICAID, SELFPAY ==
[2018-04-11 14:56] LABS: HCT 37.9 % (36.0-46.0); HGB 11.8 g/dL (12.0-15.5); Mean Corp. HGB Concentration 31.1 g/dL (32.0-36.0); Mean Corpuscular Hemoglobin 24.2 pg (27.0-33.0); Mean Corpuscular Volume 77.8 fL (80-95); Mean Platelet Volume 9.5 fL (8.0-11.0); Platelet Count 312 x1000/uL (130-400); RBC 4.87 m/cumm (4.00-5.20); RBC Distribution Width 15.6 % (11.7-14.6); White Blood Cell Count 8.25 k/cumm (4.4-10.8)
[2018-04-11 15:07] LABS: INR 1.2 (1.0-3.5); Prothrombin Time 11.4 sec (9.3-10.8)
== END 2018-04-11 14:42 ==
PROVIDERS: PCP Physician Assistant; Visit Provider Internal Medicine
DX: I26.99 Other pulmonary embolism without acute cor pulmonale (principal)
CPT/HCPCS: 36415; 85027; 85025; 85610

== ENCOUNTER 2018-04-12 00:55 | Outpatient (CLI) | payer MEDICAID, SELFPAY ==
--- NOTE | 2018-04-12 12:59 | DI.US_ITS ---
SYMPTOMS/DIAGNOSIS: NONTOXIC SINGLE THYROID NODULE, E04.1 THYROID ULTRASOUND: The right thyroid lobe measures 5.9 x 2.0 x 1.5 cm. In the upper pole there is a 8 x 6 x 6 mm solid nodule. In the mid portion of the upper pole there is a 5 x 6 x 6 mm cyst and a 10 x 7 x 6 mm complex cyst. In the mid to lower pole there is a 9 x 9 x 3 mm cyst in the lower pole. There is a 9 x 7 mm complex cyst and in the inferior portion of the right thyroid lobe there is 22 x 24 x 13 mm complex cyst. The isthmus appears unremarkable. In the left thyroid lobe there is a partially cystic 6 x 7 x 5 mm upper pole nodule in the upper pole and extending to the proximal portion of the lower pole. There is a heterogeneous mass with color flow measuring 7 x 6.5 x 5.8 cm. SUMMARY: Findings consistent with a multi-nodular enlarged thyroid gland. A dominant heterogeneous mass with color flow is noted in the left thyroid lobe measuring 7 x 1 x 6.5 x 3.8 cm as described above.
== END 2018-04-12 01:15 ==
PROVIDERS: PCP Physician Assistant; Visit Provider Internal Medicine
DX: E04.2 Nontoxic multinodular goiter (principal)
CPT/HCPCS: 76536

== ENCOUNTER 2018-04-13 00:41 | Outpatient (CLI) | payer MEDICAID, SELFPAY ==
--- NOTE | 2018-04-13 13:25 | DI.COMBO_ITS ---
SYMPTOMS/DIAGNOSIS: LT BREAST MASS, SOLITARY CYST, N60.09 MAMMOGRAM AND LEFT BREAST ULTRASOUND: Mammograms were interpreted according to the usual protocol including computer analysis with CAD system, tomosynthesis and C view imaging. The breast tissue is of moderate radiodensity. A well circumscribed area of subareolar nodularity containing a thin rind of calcification at its periphery is noted. This lesion is decreased in size when compared with previous images dating back to 03/02/12. Note is made of some apparent central regions of radiolucency and would be consistent with fat. There is no other mass in the left or right breast. There are no suspicious calcifications. SUMMARY: No evidence of malignancy, Category 2. Routine yearly screening mammography is recommended. Breast density, Category B. MQSA ASSESSMENT OF FINDINGS: Negative with benign findings. Category 2. Patient will receive a letter notifying them of these results. BI-RADS category B. There are scattered areas of fibroglandular density.
== END 2018-04-13 01:01 ==
PROVIDERS: PCP Specialist/Technologist Athletic Trainer; Visit Provider Internal Medicine
DX: N63.20 Unspecified lump in the left breast, unspecified quadrant (principal); N60.82 Other benign mammary dysplasias of left breast
CPT/HCPCS: 76642; 77062; 77066; G0279

== ENCOUNTER 2018-04-17 11:28 | Outpatient (REF) | payer MEDICAID, SELFPAY ==
[2018-04-17 21:22] LABS: Abs Immature Grans 0.02 k/cumm (0.0-0.09); Absolute Basophil Count 0.05 k/cumm (0.0-0.2); Absolute Eosinophil Count 0.17 k/cumm (0.0-0.7); Absolute Lymphocyte Count 1.67 k/cumm (1.2-3.4); Absolute Monocyte Count 0.58 k/cumm (0.11-0.7); Absolute Neutrophil Count 5.04 k/cumm (1.2-6.7); Basophils % 0.7; Eosinophils % 2.3; HGB 11.8 g/dL (12.0-15.5); Immature Grans % 0.3; Lymphocytes % 22.2; Mean Corp. HGB Concentration 31.1 g/dL (32.0-36.0); Mean Corpuscular Hemoglobin 24.4 pg (27.0-33.0); Mean Corpuscular Volume 78.5 fL (80-95); Mean Platelet Volume 10.4 fL (8.0-11.0); Monocytes % 7.7; Neutrophils % 66.8; Platelet Count 289 x1000/uL (130-400); RBC 4.84 m/cumm (4.00-5.20); RBC Distribution Width 15.7 % (11.7-14.6); White Blood Cell Count 7.53 k/cumm (4.4-10.8)
== END 2018-04-17 11:48 ==
LOC: NCHCN 11:28
PROVIDERS: PCP Specialist/Technologist Athletic Trainer; Visit Provider Physician Assistant Medical
DX: D64.9 Anemia, unspecified (principal)
CPT/HCPCS: 85025

== ENCOUNTER 2018-04-24 00:16 | Outpatient (CLI) | payer MEDICAID, SELFPAY ==
--- NOTE | 2018-04-24 08:30 | MERGEMPI_ITS ---
*[facility]* *[facility]* [address] [place] [address] Myocardial Perfusion Imaging - SPECT Troy protocol Date of study: 04/24/2018 *PATIENT PRESENTATION* Height: 168.9cm (66.5in) Blood Pressure: Weight: 134.5kg (296lb) BSA: 2.59m^2 Referring physician: Hamzah Castañeda MD Ordering physician: Triston Maurice Impressions: Normal perfusion by Tc99m Sestamibi Imaging. Summary: 1. Myocardial perfusion imaging: No myocardial perfusion defects noted. 2. The calculated left ventricular ejection fraction after stress: 57%. No left ventricular regional motion abnormality. 3. Stress: The target heart rate was achieved. Indication: R07.9. History: REASON FOR VISIT: PT WAS SEEN IN THE ER ON 04/07/18 FOR AN EPISODE OF CHEST PAIN RADIATING TOWARDS HER LEFT SHOULDER. PT WAS ADMITTED TO THE HOSPITAL SHE RULED OUT FOR A MYOCARDIAL INFARCTION. PT IS CURRENTLY BEING WORKED UP FOR A LEFT THYROID NODULE WHICH WAS FOUND ON THIS ADMISSION. Risk factors: Obesity. ALLERGIES: NO KNOWN ALLERGIES. MEDICATIONS: ENOXAPARIN 0.86 ML SQ DAILY. ACETAMINOPHEN 650 MG PRN. Imaging Technique: Protocol: Troy protocol. Acquisition: Gated SPECT; 1 day - rest/stress. The patient was imaged in the supine position. Attenuation correction used. Isotope administration: - Rest. Tc[99m]-sestamibi. Dose: 15mCi. Injection time: 09:05 AM. Injection to stress time: 00:45. - Stress. Tc[99m]-sestamibi. Dose: 32.2mCi. Injection time: 11:05 AM. 1-2 min before end of exercise Baseline ECG: SINUS RHYTHM. HR 88 BPM. Stress protocol: + +---+ + !Stage !HR !BP (mmHg) ! + +---+ + !Baseline supine !88 !122/82 (95) ! + +---+ + !Baseline standing !98 !124/72 (89) ! + +---+ + !Stage I; 1.7mph, 10degrees; 3 min !140!148/82 (104)! + +---+ + !Stage II; 2.5mph, 12degrees; 3 min!158!192/98 (129)! + +---+ + !Peak stress !160! ! + +---+ + !Immediate post stress !---!192/96 (128)! + +---+ + !Recovery; 1 min !128! ! + +---+ + !Recovery; 3 min !121!172/84 (113)! + +---+ + !Recovery; 6 min !110!132/76 (95) ! + +---+ + !Recovery; 9 min !105!128/80 (96) ! + +---+ + * Stress results: Maximal heart rate during stress was 160bpm (93% of maximal predicted heart rate). The maximal predicted heart rate was 172bpm. The target heart rate was achieved. The rate-pressure product for the peak heart rate and blood pressure was 73284hi Hg/min. Stress ECG: TEADMILL EXERCISE PORTION OF STRESS TEST ENDED IN 6 MINUTES & 1 SECOND BECAUSE OF PATIENT FATIGUE NORMAL HEART RATE AND BLOOD PRESSURE RESPONSE TO EXERCISE. MAX HR = 160 % OF TARGET = 93 OCCASIONAL PVCs. APPROXIMATE METS ACHIEVED = 7.05 [address] UPWARD SLOPING ST SEGMENT DEPRESSIONS IN LEADS V3, V4, V5 & V6 UPON IMMEDIATE RECOVERY. RETURNED TO BASELINE BY 6 MINUTES RECOVERY. AVERAGE FUNCTIONAL CAPACITY FOR EXERCISE Myocardial perfusion: Imaging information: gated. No myocardial perfusion defects noted. Ventricular Function (Wall Motion): The calculated left ventricular ejection fraction after stress: 57%. No left ventricular regional motion abnormality. Study data: Hamzah Castañeda MD supervised and was readily available during the procedure. This study was interpreted by [facility]. Study status: Routine. Consent: The risks, benefits, and alternatives to the procedure were explained to the patient and informed consent was obtained. Procedure: Initial setup. A baseline ECG was recorded. Surface ECG leads and manual cuff blood pressure measurements were monitored. Heart sounds: Normal. Lung sounds: Normal. Treadmill exercise testing was performed using the Troy protocol. Study completion: All catheters inserted during the procedure were removed. The patient tolerated the procedure well and was discharged from the lab. Discharge: The patient left the laboratory in stable condition. Birthdate: Patient birthdate: 1970. Sex: Gender: female. Study date: Study date: 04/24/2018. Study time: 12:30 PM. Electronically signed by Hamzah Castañeda MD 04/24/2018 17:34
== END 2018-04-24 00:36 ==
PROVIDERS: PCP Specialist/Technologist Athletic Trainer; Visit Provider Specialist/Technologist Athletic Trainer
DX: R07.89 Other chest pain (principal); Z86.711 Personal history of pulmonary embolism
CPT/HCPCS: 78452; 93017

== ENCOUNTER 2018-05-02 13:36 | Outpatient (CLI) | payer MEDICAID, SELFPAY ==
--- NOTE | 2018-05-03 10:14 | DI.CT_ITS ---
SYMPTOMS/DIAGNOSIS: PE, I26.99 CT ANGIOGRAPHY, CHEST: CT angiography was performed with multi slice acquisition and multi planar and 3D reconstruction. CT angiogram of the chest was performed with a bolus infusion of 100 cc of Omnipaque 350. Images obtained through the upper abdomen show unremarkable appearance of visualized portions of the liver, spleen, pancreas, adrenals and left kidney. A rounded left breast nodule is noted, mammographic correlation was obtained and showed benign findings. Left lobe thyroid mass again noted; thyroid ultrasound was performed 04/12/18. The lungs are clear. No pleural effusion seen. Tracheobronchial tree appears intact. No mediastinal mass or adenopathy seen. There is no evidence of pulmonary embolic disease. Thoracic aorta is unremarkable with no evidence of aneurysm or dissection. CONCLUSION: Negative CT angiography of the chest. No evidence of pulmonary embolic disease.
== END 2018-05-02 13:56 ==
PROVIDERS: PCP Specialist/Technologist Athletic Trainer; Visit Provider Physician Assistant Medical
DX: E04.1 Nontoxic single thyroid nodule (principal); N60.82 Other benign mammary dysplasias of left breast; I26.99 Other pulmonary embolism without acute cor pulmonale
CPT/HCPCS: 71275

== ENCOUNTER 2019-09-28 08:52 | Outpatient (REF) | payer MEDICAID, SELFPAY ==
[2019-09-28 19:32] LABS: ALT 40 U/L (14-59); AST 22 U/L (15-37); Albumin 3.8 g/dL (3.4-5.0); Alkaline Phosphatase 106 U/L (46-116); Anion Gap 7.6 mmol/L (3-11); BUN 17 mg/dL (7-18); Bilirubin, Total 0.4 mg/dL (0.2-1.0); CO2 31.4 mmol/L (21.0-32.0); CREATININE 0.91 mg/dL (0.55-1.02); Calcium 9.4 mg/dL (8.5-10.1); Calculated LDL 159 mg/dL (<100); Chloride 104 mmol/L (98-107); Cholesterol 223 mg/dL (<200); Glucose 150 mg/dL (74-106); HDL Cholesterol 46 mg/dL (40-60); Potassium 4.8 mmol/L (3.5-5.1); Sodium 143 mmol/L (136-145); TSH (W/Ref FT4) 0.83 uIU/mL (0.36-3.74); Total Protein 7.3 g/dL (6.4-8.2); Triglyceride 93 mg/dL (<150)
== END 2019-09-28 09:12 ==
LOC: NCHCN 08:52
PROVIDERS: PCP Specialist/Technologist Athletic Trainer; Visit Provider Nurse Practitioner Family
DX: Z00.00 Encounter for general adult medical examination without abnormal findings (principal); E04.1 Nontoxic single thyroid nodule
CPT/HCPCS: 80053; 80061; 84443

== ENCOUNTER 2020-02-04 10:15 | Outpatient (REF) | payer MEDICAID, SELFPAY ==
--- NOTE | 2020-02-04 09:00 | PAPFT_PTH ---
PATIENT: Claribel Montgomery LOC: [facility] WITH [facility]#:[id number] AGE/SX: 49/F ROOM: RE02/04/[address]: Miguel A Brown : 1970 BED: DIS: 02/04/2020 SPEC #: [id number] RECD: 02/04/20 18:33 STATUS: GUY REQ #: [id number] WILNER: 02/04/20 09:[address]: Miguel A Brown DEPT: [facility] Cytology RECD BY: Loraine Moulton ENTERED: 02/04/20 18:33 SP TYPE: PAPFT OTHR DR: Triston Maurice Tissues: 1 - CX/ENDOCX FOR PAP SMEARS Procedures: PAP THIN PREP/UVM Screening HPV DNA PROBE Comments: [id number]
[2020-02-04 19:52] LABS: Abs Immature Grans 0.03 10^3/uL (0.0-0.06); Absolute Basophil Count 0.06 10^3/uL (0.0-0.2); Absolute Eosinophil Count 0.24 10^3/uL (0.0-0.7); Absolute Lymphocyte Count 1.79 10^3/uL (1.2-3.4); Absolute Monocyte Count 0.54 10^3/uL (0.1-0.8); Absolute Neutrophil Count 5.04 10^3/uL (1.2-6.7); Basophils % 0.8; Eosinophils % 3.1; HCT 42.2 % (36.0-46.0); HGB 12.5 g/dL (11.2-15.7); Immature Grans % 0.4; Lymphocytes % 23.2; MCH 24.3 pg (27.0-33.0); MCHC 29.6 % (32.0-36.0); MCV 82.1 fL (80-95); MPV 10.5 fL (8.0-11.0); Neutrophils % 65.5; Nucleated RBC 0 %; Platelet Count 332 10^3/uL (130-400); RBC 5.14 10^6/uL (3.93-5.22); RDW 15.2 % (11.7-14.6); RDW-SD 45.4 fL
[2020-02-04 20:08] LABS: Calculated LDL 151 mg/dL (<100); Cholesterol 220 mg/dL (<200); HDL Cholesterol 44 mg/dL (40-60); Triglyceride 126 mg/dL (<150)
[2020-02-04 21:18] LABS: Hemoglobin A1C 6.8 % (3.8-5.6)
== END 2020-02-04 10:35 ==
LOC: NCHCN 10:15
PROVIDERS: PCP Specialist/Technologist Athletic Trainer; Visit Provider Physician Assistant Medical
DX: K76.0 Fatty (change of) liver, not elsewhere classified (principal); Z13.220 Encounter for screening for lipoid disorders; Z13.1 Encounter for screening for diabetes mellitus; Z12.4 Encounter for screening for malignant neoplasm of cervix; Z11.51 Encounter for screening for human papillomavirus (HPV)
CPT/HCPCS: 80061; 88142; 83036; 85025; 87624

== ENCOUNTER 2020-02-27 01:05 | Outpatient (CLI) | payer MEDICAID, SELFPAY ==
--- NOTE | 2020-02-27 | DI.MAMMO_ITS ---
EXAM: MAMMO SCREENING CLINICAL HISTORY: SCREENING, [facility],Z00.00 TECHNIQUE: Mammograms were interpreted according to the usual protocol including computer analysis w [employer] CAD system, tomosynthesis and C-view imaging. COMPARISON: FINDINGS: The breasts are of moderate density with fairly symmetrical distribution of fibroglandular tissue. N o dominant mass or clumped microcalcification is identified in either breast. The current examinatio n is compared with previous examinations including April 2018 and there has been no gross interval change in appearance in comparison with the prior studies. IMPRESSION: No specific evidence of malignancy at this time. Routine screening examinations are suggested at yea rly intervals due to the family history of breast carcinoma. BI-RADS Category 1 - Negative Breast Density - Category B - Scattered areas of fibroglandular density
== END 2020-02-27 01:25 ==
PROVIDERS: PCP Physician Assistant Medical; Visit Provider Physician Assistant Medical
DX: Z12.31 Encounter for screening mammogram for malignant neoplasm of breast (principal); Z80.3 Family history of malignant neoplasm of breast
CPT/HCPCS: 77063; 77067

== ENCOUNTER 2022-03-29 10:53 | Outpatient (REF) | payer MEDICAID, SELFPAY ==
[2022-03-29 15:55] LABS: HCT 44.5 % (36.0-46.0); HGB 14.2 g/dL (11.2-15.7); MCH 26.8 pg (27.0-33.0); MCHC 31.9 % (32.0-36.0); MCV 84 fL (80-95); MPV 10.1 fL (8.0-11.0); Platelet Count 289 10^3/uL (130-400); RBC 5.29 10^6/uL (3.93-5.22); RDW 13.5 % (11.7-14.6); RDW-SD 41.2 fL; WBC 6.89 10^3/uL (4.4-10.8)
[2022-03-29 16:13] LABS: Hemoglobin A1C 6.6 % (<5.7)
[2022-03-29 16:47] LABS: ALT 48 U/L (14-59); AST 29 U/L (15-37); Alkaline Phosphatase 95 U/L (46-116); BUN 12 mg/dL (7-18); Bilirubin, Total 0.5 mg/dL (0.2-1.0); CREATININE 0.7 mg/dL (0.55-1.02); Calcium 9.3 mg/dL (8.5-10.1); Calculated LDL 141 mg/dL (<100); Chloride 104 mmol/L (98-107); Cholesterol 223 mg/dL (<200); Glucose 130 mg/dL (74-106); HDL Cholesterol 53 mg/dL (40-60); Sodium 140 mmol/L (136-145); TSH (W/Ref FT4) 0.26 uIU/mL (0.36-3.74); Total Protein 7.4 g/dL (6.4-8.2); Triglyceride 145 mg/dL (<150)
[2022-03-29 17:17] LABS: FREE T4 1.37 ng/dL (0.76-1.46)
== END 2022-03-29 10:54 | disposition home or self-care (01) ==
LOC: NCHCN 10:53
PROVIDERS: PCP Physician Assistant Medical; Visit Provider Physician Assistant Medical
DX: E11.9 Type 2 diabetes mellitus without complications (principal); Z90.89 Acquired absence of other organs; Z00.00 Encounter for general adult medical examination without abnormal findings
CPT/HCPCS: 80053; 80061; 85027; 83036; 84439; 84443

== ENCOUNTER 2023-03-07 12:04 | Outpatient (REF) | payer BC, SELFPAY ==
[2023-03-07 16:58] LABS: HGB 13.6 g/dL (11.2-15.7); MCH 26.6 pg (27.0-33.0); MCHC 31.6 % (32.0-36.0); MCV 84 fL (80-95); MPV 9.8 fL (8.0-11.0); Platelet Count 304 10^3/uL (130-400); RBC 5.12 10^6/uL (3.93-5.22); RDW 13.9 % (11.7-14.6); RDW-SD 42.5 fL; WBC 6.96 10^3/uL (4.4-10.8)
[2023-03-07 18:18] LABS: ALT 47 U/L (14-59); AST 24 U/L (15-37); Albumin 3.9 g/dL (3.4-5.0); Alkaline Phosphatase 100 U/L (46-116); Anion Gap 10.2 mmol/L (3-11); BUN 11 mg/dL (7-18); Bilirubin, Total 0.6 mg/dL (0.2-1.0); CO2 26.8 mmol/L (21.0-32.0); CREATININE 0.7 mg/dL (0.55-1.02); Calcium 9.4 mg/dL (8.5-10.1); Calculated LDL 165 mg/dL (<100); Chloride 103 mmol/L (98-107); Cholesterol 244 mg/dL (<200); Estimated GFR 103.35 (mL/min/1.73m2); Glucose 154 mg/dL (74-106); HDL Cholesterol 54 mg/dL (40-60); Potassium 3.6 mmol/L (3.5-5.1); Sodium 140 mmol/L (136-145); TSH 0.22 uIU/mL (0.36-3.74); Total Protein 7.2 g/dL (6.4-8.2); Triglyceride 128 mg/dL (<150)
[2023-03-07 19:54] LABS: Hemoglobin A1C 6.6 % (<5.7)
== END 2023-03-07 12:05 | disposition home or self-care (01) ==
LOC: NCHCN 12:04
PROVIDERS: PCP Physician Assistant Medical; Visit Provider Physician Assistant Medical
DX: E11.9 Type 2 diabetes mellitus without complications (principal); K76.0 Fatty (change of) liver, not elsewhere classified; E89.0 Postprocedural hypothyroidism
CPT/HCPCS: 80053; 80061; 85027; 83036; 84443

== ENCOUNTER 2024-04-10 23:59 | Outpatient (REF) | payer BC, SELFPAY ==
[2024-04-10 16:30] LABS: Abs Immature Grans 0.03 10^3/uL (0.0-0.06); Absolute Basophil Count 0.09 10^3/uL (0.0-0.2); Absolute Eosinophil Count 0.25 10^3/uL (0.0-0.7); Absolute Lymphocyte Count 1.91 10^3/uL (1.2-3.4); Absolute Monocyte Count 0.52 10^3/uL (0.1-0.8); Absolute Neutrophil Count 4.85 10^3/uL (1.2-6.7); Basophils % 1.2 %; Eosinophils % 3.3 %; HCT 43.3 % (36.0-46.0); HGB 13.5 g/dL (11.2-15.7); Immature Grans % 0.4 %; MCH 27.1 pg (27.0-33.0); MCHC 31.2 % (32.0-36.0); MCV 87 fL (80-95); MPV 10.3 fL (8.0-11.0); Monocytes % 6.8 %; Neutrophils % 63.3 %; Platelet Count 306 10^3/uL (130-400); RBC 4.99 10^6/uL (3.93-5.22); RDW 14.4 % (11.7-14.6); RDW-SD 45.6 fL; WBC 7.65 10^3/uL (4.4-10.8)
[2024-04-10 17:50] LABS: ALT 41 U/L (14-59); AST 25 U/L (15-37); Albumin 4.1 g/dL (3.4-5.0); Alkaline Phosphatase 105 U/L (46-116); Anion Gap 10.8 mmol/L (3-11); BUN 15 mg/dL (7-18); Bilirubin, Total 0.62 mg/dL (0.2-1.0); CO2 29.2 mmol/L (21.0-32.0); CREATININE 0.9 mg/dL (0.55-1.02); Calcium 9.6 mg/dL (8.5-10.1); Calculated LDL 168 mg/dL (<100); Chloride 105 mmol/L (98-107); Cholesterol 246 mg/dL (<200); Estimated GFR 75.97 (mL/min/1.73m2); Glucose 136 mg/dL (74-106); HDL Cholesterol 60 mg/dL (40-60); Potassium 4.5 mmol/L (3.5-5.1); Sodium 145 mmol/L (136-145); TSH 7.57 uIU/mL (0.36-3.74); Total Protein 7.7 g/dL (6.4-8.2); Triglyceride 94 mg/dL (<150)
[2024-04-10 18:56] LABS: Hemoglobin A1C 6.5 % (<5.7)
== END 2024-04-11 | disposition home or self-care (01) ==
LOC: NCHCN 23:59
PROVIDERS: PCP Physician Assistant Medical; Visit Provider Physician Assistant Medical
DX: E03.9 Hypothyroidism, unspecified (principal); E11.9 Type 2 diabetes mellitus without complications; K76.0 Fatty (change of) liver, not elsewhere classified
CPT/HCPCS: 80053; 80061; 83036; 84443; 85025

== ENCOUNTER 2024-07-17 15:14 | Outpatient (REF) | payer BC, SELFPAY ==
[2024-07-17 20:03] LABS: TSH 0.11 uIU/mL (0.36-3.74)
[2024-07-17 20:11] LABS: Hemoglobin A1C 6.5 % (<5.7)
== END 2024-07-17 15:15 | disposition home or self-care (01) ==
LOC: NCHCN 15:14
PROVIDERS: PCP Physician Assistant Medical; Visit Provider Physician Assistant Medical
DX: E11.9 Type 2 diabetes mellitus without complications (principal); E03.9 Hypothyroidism, unspecified
CPT/HCPCS: 83036; 84443

== ENCOUNTER 2025-02-18 16:42 | Outpatient (REF) | payer BC, SELFPAY ==
[2025-02-18 15:39] LABS: Abs Immature Grans 0.01 10^3/uL (0.0-0.06); HCT 42.1 % (36.0-46.0); HGB 13.3 g/dL (11.2-15.7); Immature Grans % 0.2 %; MCH 26.2 pg (27.0-33.0); MCHC 31.6 % (32.0-36.0); MCV 83 fL (80-95); MPV 10.1 fL (8.0-11.0); Platelet Count 283 10^3/uL (130-400); RBC 5.07 10^6/uL (3.93-5.22); RDW 13.7 % (11.7-14.6); RDW-SD 41.1 fL; WBC 6.43 10^3/uL (4.4-10.8)
[2025-02-18 16:03] LABS: ALT 40 U/L (14-59); AST 20 U/L (15-37); Albumin 3.9 g/dL (3.4-5.0); Alkaline Phosphatase 103 U/L (46-116); Anion Gap 9.7 mmol/L (3-11); BUN 9 mg/dL (7-18); Bilirubin, Total 0.6 mg/dL (0.2-1.0); CO2 29.3 mmol/L (21.0-32.0); Calcium 9.1 mg/dL (8.5-10.1); Calculated LDL 144 mg/dL (<100); Chloride 105 mmol/L (98-107); Cholesterol 219 mg/dL (<200); Estimated GFR 110.70 (mL/min/1.73m2); Glucose 104 mg/dL (74-106); HDL Cholesterol 49 mg/dL (>or=50); Potassium 4.0 mmol/L (3.5-5.1); Sodium 144 mmol/L (136-145); Total Protein 6.9 g/dL (6.4-8.2); Triglyceride 130 mg/dL (<150)
[2025-02-18 17:14] LABS: Hemoglobin A1C 6.2 % (<5.7)
== END 2025-02-18 16:43 | disposition home or self-care (01) ==
LOC: NCHCN 16:42
PROVIDERS: PCP Physician Assistant Medical; Visit Provider Physician Assistant Medical
DX: E11.9 Type 2 diabetes mellitus without complications (principal); K76.0 Fatty (change of) liver, not elsewhere classified
CPT/HCPCS: 80053; 80061; 83036; 85025

== ENCOUNTER 2025-03-01 02:20 | Outpatient (CLI) | payer BC, SELFPAY ==
--- NOTE | 2025-03-01 | DI.MAMMO_ITS ---
Exam(s) MAMMO SCREENING EXAM: MAMMO SCREENING CLINICAL HISTORY: SCREENING MAMMO Z12.31 TECHNIQUE: Bilateral full field digital CC and MLO mammographic images were obtained with 3D tomosynthesis and utilizing computer aided detection (CAD). COMPARISON: Comparison is made with prior examinations. FINDINGS: Masses/Architectural Distortion: No suspicious masses or areas of architectural distortion are present. Microcalcifications: No suspicious pleomorphic-type are seen. Skin Thickening/Nipple Retraction: None. IMPRESSION: 1. No significant interval change with no specific features of malignancy noted. 2. Unless there is more urgent need, screening mammography is recommended, as per [place] [employer] guidelines. BI-RADS Category 1 - Negative Breast Density - Category B - There are scattered areas of fibroglandular density. Breast density Category C or D implies that the patient has dense breast tissue. Dense breast tissue can make it harder to find cancer on a mammogram. Dense breast tissue is also associated with an increased risk of breast cancer. This information about the result of the mammogram report was provided to the patient to raise their awareness. Use this report when you speak with the patient about their risks for breast cancer, which includes their family history. At that time, you may recommend additional screening tests (Ultrasound or MRI) as these tests may add significant information. A negative radiographic report should not delay biopsy if a dominant or clinically suspicious mass is present. Up to ten percent of cancers are not identified on mammography. A negative report may reinforce clinical impression. Adenosis and dense breasts may obscure an underlying neoplasm. False positive reports average 6 to 10%. Patient will receive a letter notifying them of these results.
== END 2025-03-01 02:40 ==
PROVIDERS: PCP Physician Assistant Medical; Visit Provider Physician Assistant Medical
DX: Z12.31 Encounter for screening mammogram for malignant neoplasm of breast (principal)
CPT/HCPCS: 77063; 77067

== ENCOUNTER 2025-03-18 16:22 | Outpatient (REF) | payer BC, SELFPAY ==
[2025-03-18 19:46] LABS: COMMENT (LAB VIEW ONLY) 46.26 mg/dL; Microalb ug/mg Crea 11.7 ug/mg Cr
== END 2025-03-18 16:23 | disposition home or self-care (01) ==
LOC: NCHCN 16:22
PROVIDERS: PCP Physician Assistant Medical; Visit Provider Physician Assistant Medical
DX: E11.9 Type 2 diabetes mellitus without complications (principal)
CPT/HCPCS: 82043; 82570